=== PATIENT | female | born 1995 | race Caucasian/White ===

== ENCOUNTER 2017-01-06 10:38 | Emergency (ER) ==
[2017-01-06] MEDS ORDERED: ZOFRAN IV ONE (11:09)
[2017-01-06] MEDS ORDERED: NS 1,000 ML IV ONE (11:09)
[2017-01-06] MEDS ORDERED: BENTYL IM ONE (11:09)
[2017-01-06 11:37] LABS: MANUAL DIFF NEEDED? NO
[2017-01-06 11:38] LABS: URINE SOURCE CLEAN CATCH
[2017-01-06 11:40] LABS: BASO% 0.3 % (0.0-0.8); EOS# 0.13 X1000 (0.0-0.7); EOS% 1.2 % (0.0-10.0); HEMATOCRIT 40.6 % (37.0-47.0); HEMOGLOBIN 13.8 g/dL (12.0-16.0); IMM GRAN# 0.02 X1000 (0.0-0.04); IMM GRAN% 0.2 % (0.0-0.5); LYMPH# 1.61 X1000 (1.2-3.4); LYMPH% 15.4 % (20.5-51.1); MCH 30.5 PG (27-31); MCV 89.6 FL (81-99); MONO% 6.7 % (1.7-9.3); MPV 11.3 FL (7.4-10.4); NEUT% 76.2 % (42.2-75.2); PLT 249 X1000 (130-400); RBC 4.53 XMIL (4.2-5.4)
[2017-01-06 11:53] LABS: BILIRUBIN URINE NEGATIVE (NEGATIVE); BLOOD URINE NEGATIVE (NEGATIVE); CLARITY CLEAR (CLEAR); COLOR YELLOW; GLUCOSE URINE NEGATIVE (NEGATIVE); LEUKOCYTES URINE TRACE (NEGATIVE); NITRITE URINE NEGATIVE (NEGATIVE); PROTEIN URINE TRACE mg/dL (NEGATIVE); URINE CULTURE PL NEEDED? YES; URINE EPITHELIAL CELLS <10 /HPF (<10); URINE WBC <10 /HPF (<10); UROBILINOGEN URINE NORMAL
[2017-01-06 11:55] LABS: AGAP 12; ALBUMIN 4.6 g/dL (3.5-5.0); ALKALINE PHOSPHATASE 94 U/L (32-104); BUN 8 mg/dL (8-22); CALCIUM 9.3 mg/dL (8.8-10.2); CHLORIDE 104 mmol/L (98-107); COSMO 274; GOT 18 U/L (10-30); GPT 10 U/L (10-36); LIPASE 33 U/L (13-60); POTASSIUM 4.3 mmol/L (3.5-5.1); SODIUM 138 mmol/L (136-145); TCO2 22 mmol/L (25-35); TOTAL PROTEIN 7.1 g/dL (6.3-8.3)
[2017-01-06] MEDS ORDERED: CITRATE OF MAGNESIA PO ONE (12:25)
--- NOTE | 2017-01-06 12:32 | PROVIDER DOCUMENTATION ---
HPI-Abdominal Pain/GI Problem <Misbah Don - Last Filed: 01/06/17 12:30> - General Source: patient - History of Present Illness-ABD Nature of Presenting Problems: Pt is 21 y/o F presents to the ED with N/V/D. Pt states symptoms have been presents for 4 days. Pt denies F. Pt states she has a hx of gastroparesis. Abdominal Pain Onset Location: reports: generalized abdomen Pain Radiation: reports: no radiation Quality of Pain: reports: aching Severity in ED: reports: mild Onset/Duration: reports: 4 days ago Timing: reports: still present, intermittent Activities at Onset: reports: light activity Exposure to sick contacts?: No Modifying Factors: improves with: nothing Associated Symptoms: reports: diarrhea, nausea, vomiting Last BM: unsure Dark Stools Present?: reports: none noticed Rectal Bleeding: reports: none # of Diarrhea Episodes: 2 Rectal Pain: reports: none # of Vomiting Episodes: 4 Emesis Description: reports: clear Bruising or Bleeding Gums?: No Similar Symptoms Previously?: Yes Recently seen or treated by another doctor?: No <Sylvia Sims - Last Filed: 01/06/17 12:37> - General Chief Complaint: N/V/D Stated Complaint: N/V/D Time Seen by Provider: 01/06/17 10:57 Allergies/Adverse Reactions: Patient Allergies Allergy/AdvReac Type Severity Reaction Status Date / Time walnut Allergy HIVES Verified 05/25/16 18:28 walnuts Allergy HIVES Uncoded 05/25/16 18:28 Home Medications: Home Medication List Medication Instructions Recorded Confirmed Last Taken Type Ondansetron [Zofran] 4 mg PO Q6H PRN PRN #20 tablet 05/25/16 Unknown Rx Tramadol [Ultram] 50 mg PO Q8HR PRN #10 tablet 11/04/16 Unknown Rx Docusate Sodium [Dulcolax Stool 100 mg PO TID PRN PRN #10 capsule 01/06/17 Unknown Rx Softener] Glycerin [Adult Glycerin] 1 each RC TID #10 supp.rect 01/06/17 Unknown Rx Promethazine [Phenergan] 25 mg PO Q6H PRN PRN #14 tablet 01/06/17 Unknown Rx Review of Systems - Adult - REVIEW OF SYSTEMS - ADULT Constitutional: denies: chills, fever Eyes: denies: blurred vision, double vision Ears, Nose, Mouth & Throat: denies: ear pain, nose pain, throat pain Cardiovascular: denies: chest pain, heart murmur, irregular heart rate Respiratory: denies: cough, shortness of breath, wheezing Gastrointestinal: reports: abdominal pain, diarrhea, nausea, vomiting Genitourinary: denies: dysuria, hematuria Musculoskeletal: denies: bone pain, joint pain, neck pain Integumentary: denies: hives, itching Neurological: denies: dizziness/vertigo, headache/migraines Psychiatric: reports: no symptoms reported Endocrine: reports: no symptoms reported Hematologic/Lymphatic: reports: no symptoms reported Allergic/Immunologic: reports: no symptoms reported All Other Systems: Reviewed and Negative <Sylvia Sims - Last Filed: 01/06/17 12:37> Past History - Adult - PAST MEDICAL HISTORY-ADULT Major Childhood Illnesses: reports: denies history Cardiovascular: reports: denies history Respiratory: reports: denies history Gastrointestinal: reports: denies history Obstetrical/Gynecological: reports: denies history Genitourinary: reports: denies history Musculoskeletal: reports: denies history Neurological: reports: denies history Psychiatric: reports: depression Endocrine/Immune: reports: denies history Other Conditions: reports: denies history - PRIOR SURGERIES/PROCEDURES Surgical/Procedure History: reports: cholecystectomy - PRIOR HOSPITALIZATIONS Prior Hospitalizations: reports: none - IMMUNIZATION STATUS Childhood Immunizations: See Nurse Assessment Flu Vaccine: See Nurse Assessment - FAMILY HISTORY Family History: reviewed, not pertinent <Misbah Don - Last Filed: 01/06/17 12:30> - PAST MEDICAL HISTORY-ADULT Review of Records: reports: Nursing Assessment Review, Medications Reviewed, Social history reviewed & non-contributory. Major Childhood Illnesses: reports: denies history Cardiovascular: reports: denies history Respiratory: reports: denies history Gastrointestinal: reports: denies history Obstetrical/Gynecological: reports: denies history Genitourinary: reports: denies history Musculoskeletal: reports: denies history Neurological: reports: denies history Psychiatric: reports: depression Endocrine/Immune: reports: denies history Other Conditions: reports: denies history - PRIOR SURGERIES/PROCEDURES Surgical/Procedure History: reports: cholecystectomy - IMMUNIZATION STATUS Childhood Immunizations: See Nurse Assessment Flu Vaccine: See Nurse Assessment - FAMILY HISTORY Family History: reviewed, not pertinent - SOCIAL HISTORY Smoking: denies Substance Use: alcohol, marijuana Alcohol Use Frequency: occasionally Number of drinks per typical drinking period:: 2 drinks Living Situation: family <Promise Simsomi - Last Filed: 01/06/17 12:37> Physical Exam-General - PHYSICAL EXAM-ADULT Initial Vital Signs Reviewed: Yes - CONSTITUTIONAL General Appearance: appears well, alert, no apparent distress - EYES Eyes: PERRL/EOMI, pink conjunctivae, fundi clear, no AV nicking - HEAD, EARS, NOSE, MOUTH & THROAT HENMT: normocephalic/atraumatic, moist mucous membranes, normal ENT inspection, TMs normal, pharynx normal - NECK Neck: non-tender, full range of motion, supple, normal inspection - RESPIRATORY Respiratory: chest non-tender, lungs clear, normal breath sounds, no pleuratic chest pain, no respiratory distress, no accessory muscle use - CARDIOVASCULAR Cardiovascular: normal peripheral pulses, regular rate, rhythm, no edema, no gallop, no JVD, no murmur - GASTROINTESTINAL (ABDOMEN) Abdominal Exam: normal bowel sounds, non tender, soft, no organomegaly, no pulsatile mass - LYMPHATIC Lymphatic: no adenopathy - MUSCULOSKELETAL Back Exam: normal inspection, no CVA tenderness, no vertebral tenderness Extremity: normal range of motion, non-tender, normal gait, normal inspection, no pedal edema - SKIN Integumentary: normal color, normal turgor, warm/dry - NEUROLOGIC Neurologic: grossly normal - PSYCHIATRIC Psych/Mental Status: normal mood/affect, oriented x 3 <Sylvia Sims - Last Filed: 01/06/17 12:37> Progress - PLAN OF CARE/RESULTS Progress/Plan/Lab Results: Laboratory Tests 01/06/17 01/06/17 01/06/17 11:30 11:30 11:30 WBC 10.48 RBC 4.53 Hgb 13.8 Hct 40.6 MCV 89.6 MCH 30.5 MCHC 34.0 RDW Std Deviation 12.0 Plt Count 249 MPV 11.3 H Immature Gran % (Auto) 0.2 Neut % (Auto) 76.2 H Lymph % (Auto) 15.4 L [place] % (Auto) 6.7 Eos % (Auto) 1.2 Baso % (Auto) 0.3 Immature Gran # (Auto) 0.02 Neut # (Auto) 7.99 H Lymph # (Auto) 1.61 [place] # (Auto) 0.70 H Eos # (Auto) 0.13 Baso # (Auto) 0.03 Sodium 138 Potassium 4.3 Chloride 104 Carbon Dioxide 22 L Anion Gap 12 BUN 8 Creatinine 0.6 Estimated GFR/1.73 m2 > 60 BUN/Creatinine Ratio 13 Glucose 103 Calculated Osmolality 274 Calcium 9.3 Total Bilirubin 0.50 AST 18 ALT 10 Alkaline Phosphatase 94 Total Protein 7.1 Albumin 4.6 Globulin 3.0 Albumin/Globulin Ratio 2.0 Lipase 33 Urine Source CLEAN CATCH Urine Color YELLOW Urine Clarity CLEAR Urine pH 5.0 Ur Specific [place] 1.020 Urine Protein TRACE A Urine Ketones NEGATIVE Urine Blood NEGATIVE Urine Nitrite NEGATIVE Urine Bilirubin NEGATIVE Urine Urobilinogen NORMAL Urine Microscopic RBC Not Reportable Urine WBC TRACE A Urine Microscopic WBC <10 Ur Epithelial Cells <10 Urine Bacteria 1+ Urine Glucose NEGATIVE Orders Category Date Time Status ED: Urine Bedside ORDERED Care 01/06/17 11:09 Active Saline Loc NOW Care 01/06/17 11:09 Active FLAT/UPRIGHT ABD/1 VIEW CHEST [RAD] Stat Exams 01/06/17 11:57 Taken CBC WITH DIFF [HEME] Stat Lab 01/06/17 11:30 Completed COMPREHENSIVE METABOLIC PANEL [CHEM] Stat Lab 01/06/17 11:30 Completed LIPASE [CHEM] Stat Lab 01/06/17 11:[address] W/POSS RFLX CULT [URINALYSIS] Stat Lab 01/06/17 11:30 Completed URINE CULTURE [RM] Routine Lab 01/06/17 11:53 Ordered 0.9% Sodium Chloride Inj [Ns] 1,000 ml Med 01/06/17 11:09 Discontinued IV 999 mls/hr Dicyclomine [Bentyl] Med 01/06/17 11:09 Discontinued 20 mg IM NOW ONE Magnesium Citrate [Citrate of Magnesia] Med 01/06/17 12:25 Discontinued 300 ml PO NOW ONE Ondansetron [Zofran] Med 01/06/17 11:09 Discontinued 4 mg IV NOW ONE Vital Signs - 24 hr 01/06/17 10:52 Temperature 98.4 F Pulse Rate 70 Respiratory 18 Rate Blood Pressure 127/065 O2 Sat by Pulse 99 Oximetry - XRAY 1 XRAY: Bilateral XRAY Study: Chest, Abdomen Impression: Abnormal XRAY Interpretation: constipation <Levi,Sylvia - Last Filed: 01/06/17 12:37> Departure - Departure Time of Disposition Order: 12:30 Certified Medical Emergency: Emergent <ArianSandipMisbahsteve Little - Last Filed: 01/06/17 12:30> - Departure Time of Disposition Order: 12:36 Certified Medical Emergency: Emergent <Sylvia Sims - Last Filed: 01/06/17 12:37> - Departure DIAGNOSIS: Constipation Qualifiers: Constipation type: unspecified constipation type Qualified Code(s): K59.00 - Constipation, unspecified Nausea and vomiting Qualifiers: Vomiting type: unspecified Vomiting Intractability: non-intractable Qualified Code(s): R11.2 - Nausea with vomiting, unspecified Disposition: HOME 01 Condition: Good Additional Instructions: Take medication as prescribed. Stay well hydrated and eat a high fiber diet. Follow up with a chemical dependency therapist as needed. ED Follow Up Instructions: You have been treated by a care provider in the Emergency Department. These instructions are being provided to you so you can have an understanding of how to care for yourself upon discharge. Upon discharge from the Emergency Department, you are responsible for making arrangements for follow-up care by a physician of your choice. Take all prescribed medications as directed. Return to the Emergency Department immediately for any new or worsening symptoms. You may call the Physician Referral phone number at [phone] to obtain a list of Physicians who are taking new patients. Prescriptions: Glycerin [Adult Glycerin] 1 each RC TID #10 supp.rect Docusate Sodium [Dulcolax Stool Softener] 100 mg PO TID PRN PRN #10 capsule PRN Reason: Constipation Promethazine [Phenergan] 25 mg PO Q6H PRN PRN #14 tablet PRN Reason: Nausea Referrals: None,PCP [Primary Care Provider] - Bob Olvera MD [STAFF PHYSICIAN] - Attestation - Physician/ RNEE Attestation Patient care was provided by Advanced Practice Provider:: Yes Advanced Practice Provider:: Misbah Don Advanced Practice Provider documentation review:: The Mid-level provider documentation, treatment plan and medical decision making was reviewed by the physician who agrees with all treatment and medical decision making by the [facility]. <Misbah Don - Last Filed: 01/06/17 12:30> - Scribe Verification/Attestation Scribe:: Sylvia Sims Acting as Scribe for:: Misbah Don Scribe documention review:: This chart was documented by a scribe and accurately reflects the service the provider performed and the decisions made by the provider. <Sylvia Sims - Last Filed: 01/06/17 12:37> Physician Attestation
[2017-01-06 12:51] VITALS: BP 101/66
--- NOTE | 2017-01-06 14:11 | Diag Imaging Result Document ---
PROCEDURE NAME: FLAT/UPRIGHT ABD/1 VIEW CHEST - 01/06/2017 FLAT AND UPRIGHT AND CHEST, THREE VIEWS: COMPARISON: Chest compared to 12/10/2015. FINDINGS: The lungs are well expanded. There are no infiltrates. No cardiomegaly. No free air beneath the diaphragm. The gallbladder has been removed. There is stool throughout the colon. The bowel loops are not dilated. No organomegaly. No abnormal abdominal calcifications. IMPRESSION: Constipation.
== END 2017-01-06 12:50 | disposition home or self-care (01) ==
LOC: P.ED 10:38
DX: K59.00 Constipation, unspecified (principal); R11.2 Nausea with vomiting, unspecified; R10.84 Generalized abdominal pain; R19.7 Diarrhea, unspecified
CPT/HCPCS: 74022; 80053; 81001; 81025; 83690; 85025; 87088; 96361; 96372; 96374; J0500; J2405; J7030